=== PATIENT | male | born 1935 | race Caucasian/White ===

== ENCOUNTER 2017-09-22 12:41 | Inpatient (IN) | payer MEDICARE, MEDICAID, OTHER ==
[~2017-09-22] VITALS: Ht 188 cm; Wt 104.5 kg
[~2017-09-22 12:41] MED LIST: ACET-2119 PO; ALLO300T2 PO; ASPI81TA46 PO; BENZ1LOZ61 PO; CALC200T29 PO; CARV10CP PO; CHOL10002 PO; CLOT12CR TOP; DEXT15DR7 EACHEYE; DIME92CR TP; DIVA500T4 PO; FAMO20TA8 PO; FURO-149 PO; GALA8TAB PO; HYDR-569 PO; LACT30003 PO; LORA0.5T PO; MAGN400O6 PO; MELO-102 PO; MICO5POW6 TOP; MULT-1002 PO; POTA10TA19 PO; SERT100T10 PO; SIMV80TA5 PO; [UNRECOGNIZED DRUG - CODE] TP
[2017-09-22] MEDS ORDERED: normal saline 1000ML IV soln IVB ONE (12:55)
[2017-09-22 13:15] LABS: HEMATOCRIT 44.1 % (42.0-52.0); MEAN CORPUSCULAR HGB CONC 34.1 % (33.0-36.5); MEAN CORPUSCULAR VOLUME 96.9 FL (78-98); MEAN PLATELET VOLUME 8.5 FL (7.4-10.4); PLATELET COUNT 186 X10'3 (140-440); RED BLOOD COUNT 4.56 X10'6 (4.70-6.10); RED CELL DISTRIBUTION WIDTH 14.8 % (11.5-14.5)
[2017-09-22 13:26] LABS: INR 1.2 INR; PARTIAL THROMBOPLASTIN TIME 30 SECONDS (22-32); PROTHROMBIN TIME 12.1 SECONDS (9.0-12.0)
[2017-09-22 13:34] LABS: ALANINE AMINOTRANSFERASE 31 U/L (12-78); ALBUMIN 2.4 G/DL (3.4-5.0); ALBUMIN/GLOBULIN RATIO 0.5 (1.1-1.5); ALKALINE PHOSPHATASE 124 IU/L (46-116); ANION GAP 12 (8-16); ASPARTATE AMINO TRANSFERASE 27 U/L (10-37); BLOOD UREA NITROGEN 33 MG/DL (7-18); CALCIUM 9.2 MG/DL (8.5-10.1); CHLORIDE 105 MMOL/L (99-107); CREATININE 1.03 MG/DL (0.60-1.10); ETHANOL < 0.010 GM/DL (0.0-0.010); GLUCOSE 131 MG/DL (70-104); LACTIC SEPSIS 1.8 MMOL/L (0.4-2.0); MAGNESIUM 2.2 MG/DL (1.5-2.4); POTASSIUM 3.8 MMOL/L (3.5-5.1); SODIUM 142 MMOL/L (135-145); TOTAL CARBON DIOXIDE 25.2 MMOL/L (24-32); TOTAL PROTEIN 6.8 G/DL (6.4-8.2); TROPONIN I < 0.04 NG/ML (0.0-0.05); eGFR 69 ML/MIN
[2017-09-22 13:44] LABS: ANISOCYTOSIS 1+; NUCLEATED RED BLOOD CELLS 1 /100WBC (0-0); PLATELET ESTIMATE NORMAL; TOTAL CELLS COUNTED 100
[2017-09-22 14:07] LABS: CLARITY,URINE CLEAR (Clear); COLOR,URINE AMBER (Yellow); GLUCOSE, URINE NEGATIVE (Neg); KETONES,URINE 15 mg/dl (Neg); LEUKOCYTE ESTERASE ,URINE NEGATIVE (Neg); NITRITES, URINE NEGATIVE (Neg); OCCULT BLOOD,URINE TRACE-INTACT (Neg); PROTEIN,URINE 30 mg/dl (Neg); UA COLLECTION TYPE FOLEY CATH; UROBILINOGEN,URINE 0.2 E.U/dL (0.2-1.0)
[2017-09-22] MEDS ORDERED: metroNIDAZOLE-Flagyl 500mg/NS 100 ML IV STA (14:07)
[2017-09-22] MEDS ORDERED: ciprofloxacin lact 400MG/200ML 200 ML IV ONE (14:10)
[2017-09-22 14:13] LABS: URINE AMPHETAMINE SCREEN NEGATIVE (Neg); URINE BARBITUATE SCREEN NEGATIVE (Neg); URINE BENZODIAZEPINES SCREEN NEGATIVE (Neg); URINE CANNABINOID SCREEN NEGATIVE (Neg); URINE COCAINE SCREEN NEGATIVE (Neg); URINE METHADONE SCREEN NEGATIVE (Neg); URINE OPIATE SCREEN NEGATIVE (Neg); URINE PHENCYCLIDINE SCREEN NEGATIVE (Neg)
[2017-09-22 14:16] LABS: BACTERIA,URINE FEW /HPF (Neg); MUCUS STRANDS MANY /LPF (Neg); SQUAMOUS EPITHELIAL CELL,UR NONE SEEN /LPF (FEW); TRANSITIONAL EPI CELLS,URINE FEW /HPF
[2017-09-22 14:17] LABS: COARSE GRANULAR CAST 0-3 /LPF (NEGATIVE); HYALINE CASTS 0-3 /LPF (NEGATIVE)
[2017-09-22] MEDS ORDERED: potassium Cl 40MEQ/NS 500ml 500 ML IV PRN ×2 (14:45)
[2017-09-22] MEDS ORDERED: magnesium 2GM in 50ml NS 50 ML IV PRN (14:45)
[2017-09-22] MEDS ORDERED: mag hydrox/Alum hydrox/simeth 30ml oral suspension PO PRN (14:45)
[2017-09-22] MEDS ORDERED: potassium Cl 20 mEq SR tablet PO PRN (14:45)
[2017-09-22] MEDS ORDERED: acetaminophen 325mg tablet PO PRN (14:45)
[2017-09-22] MEDS ORDERED: magnesium 4gm in 100ml NS 100 ML IV PRN (14:45)
[2017-09-22] MEDS ORDERED: magnesium hydroxide 30ml (MOM) UD suspension PO PRN (14:45)
[2017-09-22] MEDS ORDERED: ondansetron/PF 4mg/2ml inj IV PRN (14:45)
[2017-09-22] MEDS ORDERED: magnesium Cl slow-release 64mg tablet PO PRN (14:45)
[2017-09-22] MEDS ORDERED: DONE10TA6 PO (15:03)
[2017-09-22] MEDS ORDERED: LOPE2CAP PO (15:03)
[2017-09-22] MEDS ORDERED: BISA5TAB10 PO (15:03)
[2017-09-22] MEDS: normal saline 1000ml 1,000 ML IV SCH (15:57)
[2017-09-22] MEDS ORDERED: metroNIDAZOLE-Flagyl 500mg/NS 100 ML IV SCH (16:00)
[2017-09-22] MEDS ORDERED: iohexol 300mg/ml 100ml inj. ONE (17:27)
[2017-09-22] MEDS: carVEDilol 3.125mg tablet PO SCH (19:55)
[2017-09-22] MEDS: donepezil 5mg tablet PO SCH (20:58)
[2017-09-22 21:35] VITALS: BP 111/63
[2017-09-22] MEDS: metroNIDAZOLE-Flagyl 500mg/NS 100 ML IV SCH (23:34)
[2017-09-23] MEDS: normal saline 1000ml 1,000 ML IV SCH ×2 (03:29→10:41)
[2017-09-23 05:35] LABS: ALANINE AMINOTRANSFERASE 23 U/L (12-78); ALBUMIN 1.9 G/DL (3.4-5.0); ALBUMIN/GLOBULIN RATIO 0.5 (1.1-1.5); ALKALINE PHOSPHATASE 99 IU/L (46-116); ANION GAP 10 (8-16); ASPARTATE AMINO TRANSFERASE 25 U/L (10-37); BILIRUBIN,TOTAL 0.7 MG/DL (0.1-1.0); BLOOD UREA NITROGEN 26 MG/DL (7-18); BUN/CREATININE RATIO 32.1 (5.4-32.0); CALCIUM 8.6 MG/DL (8.5-10.1); CHLORIDE 109 MMOL/L (99-107); CREATININE 0.81 MG/DL (0.60-1.10); GLUCOSE 117 MG/DL (70-104); MAGNESIUM 2.1 MG/DL (1.5-2.4); POTASSIUM 4.1 MMOL/L (3.5-5.1); SODIUM 144 MMOL/L (135-145); TOTAL CARBON DIOXIDE 25.5 MMOL/L (24-32); TOTAL PROTEIN 5.8 G/DL (6.4-8.2); eGFR > 90 ML/MIN
[2017-09-23] MEDS: metroNIDAZOLE-Flagyl 500mg/NS 100 ML IV SCH ×2 (06:13→14:00)
[2017-09-23 06:54] LABS: HEMATOCRIT 39.7 % (42.0-52.0); HEMOGLOBIN 13.4 g/dl (14.0-17.9); MEAN CORPUSCULAR HGB CONC 33.7 % (33.0-36.5); MEAN CORPUSCULAR VOLUME 97.9 FL (78-98); MEAN PLATELET VOLUME 8.9 FL (7.4-10.4); PLATELET COUNT 163 X10'3 (140-440); RED BLOOD COUNT 4.06 X10'6 (4.70-6.10); RED CELL DISTRIBUTION WIDTH 14.8 % (11.5-14.5); WHITE BLOOD COUNT 9.8 X10'3 (4.5-11.0)
[2017-09-23 07:00] VITALS: BP 113/61
[2017-09-23 07:08] LABS: ANISOCYTOSIS 1+; PLATELET ESTIMATE NORMAL; TOTAL CELLS COUNTED 100
[2017-09-23 07:09] LABS: POLYCHROMASIA FEW
[2017-09-23] MEDS: K and/or MAG REPLACEMENT MC SCH (08:00)
[2017-09-23] MEDS: divalproex sod 250mg ER (24-hour) tablet PO SCH ×3 (08:00→12:25)
[2017-09-23] MEDS: carVEDilol 3.125mg tablet PO SCH ×2 (09:18→20:01)
[2017-09-23] MEDS: levoFLOXACIN-Levaquin 500mg/D5 100 ML IV SCH (09:18)
[2017-09-23] MEDS: acetaminophen 325mg tablet PO PRN (09:19)
[2017-09-23] MEDS: enoxaparin 40mg/0.4ml syringe SQ SCH (09:21)
[2017-09-23 11:10] VITALS: BP 99/50
[2017-09-23 19:00] VITALS: BP 116/69
[2017-09-24] VITALS: BP 113/56
[2017-09-24] MEDS: donepezil 5mg tablet PO SCH ×2 (00:10→20:48)
[2017-09-24] MEDS: normal saline 1000ml 1,000 ML IV SCH ×3 (00:10→16:41)
[2017-09-24] MEDS: metroNIDAZOLE-Flagyl 500mg/NS 100 ML IV SCH ×3 (02:10→18:45)
[2017-09-24] MEDS ORDERED: VANCOMYCIN LEVEL IV ONE (03:30)
[2017-09-24 04:31] LABS: BASOPHILS % (AUTO) 0.2 % (0-1); EOSINOPHILS # (AUTO) 0.5 X10'3 (0-0.9); EOSINOPHILS % (AUTO) 4.9 % (0-6); HEMATOCRIT 34.8 % (42.0-52.0); HEMOGLOBIN 11.6 g/dl (14.0-17.9); LYMPHOCYTES # (AUTO) 1.1 X10'3 (1.1-4.8); LYMPHOCYTES % (AUTO) 11.2 % (21-51); MEAN CORPUSCULAR HEMOGLOBIN 32.4 PG (27.0-31.0); MEAN CORPUSCULAR HGB CONC 33.3 % (33.0-36.5); MEAN CORPUSCULAR VOLUME 97.1 FL (78-98); MEAN PLATELET VOLUME 8.9 FL (7.4-10.4); MONOCYTES # (AUTO) 1.8 X10'3 (0-0.9); MONOCYTES % (AUTO) 18.3 % (2-12); NEUTROPHILS # (AUTO) 6.6 X10'3 (1.8-7.7); NEUTROPHILS % (AUTO) 65.4 % (42-75); PLATELET COUNT 159 X10'3 (140-440); RED BLOOD COUNT 3.58 X10'6 (4.70-6.10); RED CELL DISTRIBUTION WIDTH 14.1 % (11.5-14.5)
[2017-09-24 04:33] LABS: ALANINE AMINOTRANSFERASE 20 U/L (12-78); ALBUMIN 1.6 G/DL (3.4-5.0); ALBUMIN/GLOBULIN RATIO 0.5 (1.1-1.5); ALKALINE PHOSPHATASE 92 IU/L (46-116); ANION GAP 8 (8-16); ASPARTATE AMINO TRANSFERASE 28 U/L (10-37); BILIRUBIN,TOTAL 0.4 MG/DL (0.1-1.0); BLOOD UREA NITROGEN 25 MG/DL (7-18); BUN/CREATININE RATIO 30.1 (5.4-32.0); CALCIUM 8.1 MG/DL (8.5-10.1); CHLORIDE 111 MMOL/L (99-107); CREATININE 0.83 MG/DL (0.60-1.10); GLUCOSE 144 MG/DL (70-104); MAGNESIUM 1.8 MG/DL (1.5-2.4); PHOSPHORUS 2.2 MG/DL (2.3-4.5); POTASSIUM 3.3 MMOL/L (3.5-5.1); SODIUM 145 MMOL/L (135-145); TOTAL CARBON DIOXIDE 26.1 MMOL/L (24-32); TOTAL PROTEIN 4.9 G/DL (6.4-8.2); VANCOMYCIN,TROUGH 14.3 UG/ML (6.0-14.0); eGFR 89 ML/MIN
[2017-09-24 07:00] VITALS: BP 137/64
[2017-09-24] MEDS: K and/or MAG REPLACEMENT MC SCH (08:00)
[2017-09-24 09:04] LABS: C DIFF ANTIGEN NEGATIVE (NEGATIVE); C DIFF SPECIMEN=DIARRHEA? ACCEPTABLE; C DIFFICILE TOXINS A&B NEGATIVE (Neg)
[2017-09-24] MEDS: enoxaparin 40mg/0.4ml syringe SQ SCH (09:11)
[2017-09-24] MEDS: carVEDilol 3.125mg tablet PO SCH ×2 (09:11→20:47)
[2017-09-24] MEDS: divalproex sod 250mg ER (24-hour) tablet PO SCH (09:12)
[2017-09-24] MEDS: levoFLOXACIN-Levaquin 500mg/D5 100 ML IV SCH (09:12)
[2017-09-24 10:20] LABS: TOTAL CELLS COUNTED 100
[2017-09-24 10:21] LABS: PLATELET ESTIMATE NORMAL
[2017-09-24 10:22] LABS: SMUDGE CELLS FEW; TOXIC GRANULATION 1+
[2017-09-24 11:00] VITALS: BP 129/70
[2017-09-24] MEDS: potassium Cl 20 mEq SR tablet PO PRN ×2 (12:06→16:11)
[2017-09-24 20:00] VITALS: BP 114/63
[2017-09-24] MEDS: lactobacillus rhamnosus 10,000 MMU CELLS/CAPSULE PO SCH (20:48)
[2017-09-25] VITALS: BP 125/72
[2017-09-25] MEDS: normal saline 1000ml 1,000 ML IV SCH ×3 (00:41→22:41)
[2017-09-25] MEDS: metroNIDAZOLE-Flagyl 500mg/NS 100 ML IV SCH ×3 (02:04→17:45)
[2017-09-25 06:00] VITALS: BP 123/66
[2017-09-25 06:07] LABS: BASOPHILS % (AUTO) 0.1 % (0-1); EOSINOPHILS # (AUTO) 0.5 X10'3 (0-0.9); HEMATOCRIT 35.1 % (42.0-52.0); HEMOGLOBIN 11.7 g/dl (14.0-17.9); LYMPHOCYTES # (AUTO) 1.3 X10'3 (1.1-4.8); MEAN CORPUSCULAR HEMOGLOBIN 32.6 PG (27.0-31.0); MEAN CORPUSCULAR HGB CONC 33.4 % (33.0-36.5); MEAN CORPUSCULAR VOLUME 97.6 FL (78-98); MEAN PLATELET VOLUME 8.7 FL (7.4-10.4); MONOCYTES # (AUTO) 1.3 X10'3 (0-0.9); MONOCYTES % (AUTO) 11.1 % (2-12); NEUTROPHILS # (AUTO) 8.6 X10'3 (1.8-7.7); NEUTROPHILS % (AUTO) 73.8 % (42-75); PLATELET COUNT 172 X10'3 (140-440); RED CELL DISTRIBUTION WIDTH 14.4 % (11.5-14.5); WHITE BLOOD COUNT 11.6 X10'3 (4.5-11.0)
[2017-09-25 06:46] LABS: ALANINE AMINOTRANSFERASE 21 U/L (12-78); ALBUMIN 1.7 G/DL (3.4-5.0); ALBUMIN/GLOBULIN RATIO 0.5 (1.1-1.5); ALKALINE PHOSPHATASE 97 IU/L (46-116); ANION GAP 8 (8-16); ASPARTATE AMINO TRANSFERASE 25 U/L (10-37); BILIRUBIN,TOTAL 0.5 MG/DL (0.1-1.0); BLOOD UREA NITROGEN 19 MG/DL (7-18); BUN/CREATININE RATIO 26.4 (5.4-32.0); CALCIUM 8.1 MG/DL (8.5-10.1); CHLORIDE 110 MMOL/L (99-107); CREATININE 0.72 MG/DL (0.60-1.10); GLUCOSE 105 MG/DL (70-104); MAGNESIUM 1.8 MG/DL (1.5-2.4); PHOSPHORUS 2.6 MG/DL (2.3-4.5); POTASSIUM 3.3 MMOL/L (3.5-5.1); SODIUM 144 MMOL/L (135-145); TOTAL CARBON DIOXIDE 25.7 MMOL/L (24-32); eGFR > 90 ML/MIN
[2017-09-25] MEDS: K and/or MAG REPLACEMENT MC SCH (08:00)
[2017-09-25] MEDS: lactobacillus rhamnosus 10,000 MMU CELLS/CAPSULE PO SCH ×2 (08:50→20:06)
[2017-09-25] MEDS: carVEDilol 3.125mg tablet PO SCH ×2 (08:50→20:05)
[2017-09-25] MEDS: enoxaparin 40mg/0.4ml syringe SQ SCH (08:50)
[2017-09-25] MEDS: levoFLOXACIN-Levaquin 500mg/D5 100 ML IV SCH (08:51)
[2017-09-25] MEDS: potassium Cl 20 mEq SR tablet PO PRN ×2 (08:54→12:50)
[2017-09-25 10:14] LABS: TOTAL CELLS COUNTED 100
[2017-09-25 10:15] LABS: PLATELET ESTIMATE NORMAL
[2017-09-25 10:16] LABS: SMUDGE CELLS FEW
[2017-09-25 11:00] VITALS: BP 123/66
[2017-09-25] MEDS: divalproex sod 250mg ER (24-hour) tablet PO SCH (12:49)
[2017-09-25 18:00] VITALS: BP 134/89
[2017-09-25] MEDS: acetaminophen 325mg tablet PO PRN (20:05)
[2017-09-25] MEDS: donepezil 5mg tablet PO SCH (20:06)
[2017-09-25] MEDS ORDERED: magnesium Cl slow-release 64mg tablet PO PRN (20:50)
[2017-09-25] MEDS ORDERED: potassium Cl 40MEQ/NS 500ml 500 ML IV PRN ×2 (20:50)
[2017-09-25] MEDS ORDERED: potassium Cl 20 mEq SR tablet PO PRN ×2 (20:50)
[2017-09-26] VITALS: BP 144/72
[2017-09-26] MEDS: metroNIDAZOLE-Flagyl 500mg/NS 100 ML IV SCH ×3 (02:06→18:08)
[2017-09-26] MEDS: normal saline 1000ml 1,000 ML IV SCH ×2 (02:53→19:24)
[2017-09-26 06:08] LABS: BASOPHILS % (AUTO) 0.2 % (0-1); EOSINOPHILS # (AUTO) 0.4 X10'3 (0-0.9); EOSINOPHILS % (AUTO) 3.3 % (0-6); HEMATOCRIT 33.6 % (42.0-52.0); HEMOGLOBIN 11.4 g/dl (14.0-17.9); LYMPHOCYTES # (AUTO) 1.3 X10'3 (1.1-4.8); LYMPHOCYTES % (AUTO) 9.7 % (21-51); MEAN CORPUSCULAR HGB CONC 33.9 % (33.0-36.5); MEAN CORPUSCULAR VOLUME 97.1 FL (78-98); MEAN PLATELET VOLUME 9.1 FL (7.4-10.4); MONOCYTES # (AUTO) 1.2 X10'3 (0-0.9); MONOCYTES % (AUTO) 9.1 % (2-12); NEUTROPHILS # (AUTO) 10.5 X10'3 (1.8-7.7); NEUTROPHILS % (AUTO) 77.7 % (42-75); PLATELET COUNT 174 X10'3 (140-440); RED BLOOD COUNT 3.46 X10'6 (4.70-6.10); RED CELL DISTRIBUTION WIDTH 14.1 % (11.5-14.5); WHITE BLOOD COUNT 13.4 X10'3 (4.5-11.0)
[2017-09-26 06:15] LABS: ALANINE AMINOTRANSFERASE 29 U/L (12-78); ALBUMIN 1.7 G/DL (3.4-5.0); ALBUMIN/GLOBULIN RATIO 0.6 (1.1-1.5); ALKALINE PHOSPHATASE 107 IU/L (46-116); ANION GAP 9 (8-16); ASPARTATE AMINO TRANSFERASE 40 U/L (10-37); BILIRUBIN,TOTAL 0.5 MG/DL (0.1-1.0); BLOOD UREA NITROGEN 13 MG/DL (7-18); BUN/CREATININE RATIO 17.3 (5.4-32.0); CHLORIDE 109 MMOL/L (99-107); CREATININE 0.75 MG/DL (0.60-1.10); GLUCOSE 107 MG/DL (70-104); MAGNESIUM 1.7 MG/DL (1.5-2.4); POTASSIUM 3.7 MMOL/L (3.5-5.1); SODIUM 142 MMOL/L (135-145); TOTAL CARBON DIOXIDE 23.9 MMOL/L (24-32); TOTAL PROTEIN 4.7 G/DL (6.4-8.2); eGFR > 90 ML/MIN
[2017-09-26 07:00] VITALS: BP 124/77
[2017-09-26] MEDS: K and/or MAG REPLACEMENT MC SCH (08:00)
[2017-09-26] MEDS: levoFLOXACIN-Levaquin 500mg/D5 100 ML IV SCH (08:55)
[2017-09-26] MEDS: lactobacillus rhamnosus 10,000 MMU CELLS/CAPSULE PO SCH ×2 (08:56→19:36)
[2017-09-26] MEDS: divalproex sod 250mg ER (24-hour) tablet PO SCH (08:56)
[2017-09-26] MEDS: acetaminophen 325mg tablet PO PRN (08:56)
[2017-09-26] MEDS: carVEDilol 3.125mg tablet PO SCH ×2 (08:56→19:36)
[2017-09-26] MEDS: enoxaparin 40mg/0.4ml syringe SQ SCH (08:57)
[2017-09-26 09:36] LABS: TOTAL CELLS COUNTED 100
[2017-09-26 09:37] LABS: PLATELET ESTIMATE NORMAL; POLYCHROMASIA 1+
[2017-09-26 09:38] LABS: TOXIC GRANULATION 1+
[2017-09-26 11:00] VITALS: BP 145/65
[2017-09-26] MEDS: LORazepam 0.5 MG tablet PO SCH ×2 (12:41→19:36)
[2017-09-26] MEDS: donepezil 5mg tablet PO SCH (19:36)
[2017-09-26] MEDS: mirtazapine 15mg tablet PO SCH (19:37)
[2017-09-26 20:00] VITALS: BP 106/65
[2017-09-27] VITALS: BP 121/64
[2017-09-27] MEDS: metroNIDAZOLE-Flagyl 500mg/NS 100 ML IV SCH ×3 (01:59→17:27)
[2017-09-27] MEDS: normal saline 1000ml 1,000 ML IV SCH ×2 (04:26→17:27)
[2017-09-27 05:27] LABS: BASOPHILS % (AUTO) 0 % (0-1); EOSINOPHILS # (AUTO) 0.5 X10'3 (0-0.9); HEMATOCRIT 36.8 % (42.0-52.0); HEMOGLOBIN 12.5 g/dl (14.0-17.9); LYMPHOCYTES # (AUTO) 1.4 X10'3 (1.1-4.8); LYMPHOCYTES % (AUTO) 9.2 % (21-51); MEAN CORPUSCULAR HEMOGLOBIN 33.1 PG (27.0-31.0); MEAN CORPUSCULAR HGB CONC 33.9 % (33.0-36.5); MEAN CORPUSCULAR VOLUME 97.5 FL (78-98); MEAN PLATELET VOLUME 8.2 FL (7.4-10.4); MONOCYTES # (AUTO) 1.5 X10'3 (0-0.9); MONOCYTES % (AUTO) 9.4 % (2-12); NEUTROPHILS # (AUTO) 12.3 X10'3 (1.8-7.7); NEUTROPHILS % (AUTO) 78.4 % (42-75); PLATELET COUNT 204 X10'3 (140-440); RED BLOOD COUNT 3.77 X10'6 (4.70-6.10); RED CELL DISTRIBUTION WIDTH 14.8 % (11.5-14.5); WHITE BLOOD COUNT 15.7 X10'3 (4.5-11.0)
[2017-09-27 06:17] LABS: ALANINE AMINOTRANSFERASE 28 U/L (12-78); ALBUMIN/GLOBULIN RATIO 0.6 (1.1-1.5); ALKALINE PHOSPHATASE 130 IU/L (46-116); ANION GAP 9 (8-16); ASPARTATE AMINO TRANSFERASE 48 U/L (10-37); BILIRUBIN,TOTAL 0.7 MG/DL (0.1-1.0); BLOOD UREA NITROGEN 9 MG/DL (7-18); BUN/CREATININE RATIO 12.3 (5.4-32.0); CALCIUM 7.8 MG/DL (8.5-10.1); CHLORIDE 107 MMOL/L (99-107); CREATININE 0.73 MG/DL (0.60-1.10); GLUCOSE 101 MG/DL (70-104); MAGNESIUM 1.7 MG/DL (1.5-2.4); PHOSPHORUS 3.4 MG/DL (2.3-4.5); POTASSIUM 3.6 MMOL/L (3.5-5.1); SODIUM 141 MMOL/L (135-145); TOTAL CARBON DIOXIDE 25.3 MMOL/L (24-32); TOTAL PROTEIN 5.3 G/DL (6.4-8.2); eGFR > 90 ML/MIN
[2017-09-27] MEDS: LORazepam 0.5 MG tablet PO SCH (08:00)
[2017-09-27] MEDS: K and/or MAG REPLACEMENT MC SCH (08:00)
[2017-09-27] MEDS: levoFLOXACIN-Levaquin 500mg/D5 100 ML IV SCH (08:04)
[2017-09-27] MEDS: enoxaparin 40mg/0.4ml syringe SQ SCH (08:04)
[2017-09-27] MEDS: carVEDilol 3.125mg tablet PO SCH ×2 (08:05→20:05)
[2017-09-27] MEDS: lactobacillus rhamnosus 10,000 MMU CELLS/CAPSULE PO SCH ×2 (08:05→20:05)
[2017-09-27] MEDS: divalproex sod 250mg ER (24-hour) tablet PO SCH (08:05)
[2017-09-27 10:23] LABS: PLATELET ESTIMATE NORMAL; TOTAL CELLS COUNTED 100
[2017-09-27 10:24] LABS: POLYCHROMASIA FEW; TOXIC GRANULATION 2+
[2017-09-27 11:00] VITALS: BP 113/65
[2017-09-27 20:00] VITALS: BP 107/59
[2017-09-27] MEDS: mirtazapine 15mg tablet PO SCH (20:05)
[2017-09-27] MEDS: donepezil 5mg tablet PO SCH (20:05)
[2017-09-28] VITALS: BP 113/62
[2017-09-28] MEDS: normal saline 1000ml 1,000 ML IV SCH ×3 (01:39→20:12)
[2017-09-28] MEDS: metroNIDAZOLE-Flagyl 500mg/NS 100 ML IV SCH ×3 (01:43→17:35)
[2017-09-28 07:00] VITALS: BP 107/58
[2017-09-28] MEDS: K and/or MAG REPLACEMENT MC SCH (08:00)
[2017-09-28] MEDS: levoFLOXACIN-Levaquin 500mg/D5 100 ML IV SCH (08:04)
[2017-09-28] MEDS: enoxaparin 40mg/0.4ml syringe SQ SCH (08:05)
[2017-09-28] MEDS: lactobacillus rhamnosus 10,000 MMU CELLS/CAPSULE PO SCH ×2 (08:05→20:09)
[2017-09-28] MEDS: carVEDilol 3.125mg tablet PO SCH ×2 (08:05→20:07)
[2017-09-28] MEDS: acetaminophen 325mg tablet PO PRN (11:07)
[2017-09-28 11:29] LABS: BASOPHILS % (AUTO) 0.1 % (0-1); EOSINOPHILS # (AUTO) 0.5 X10'3 (0-0.9); EOSINOPHILS % (AUTO) 3.2 % (0-6); HEMATOCRIT 32.3 % (42.0-52.0); HEMOGLOBIN 11.1 g/dl (14.0-17.9); LYMPHOCYTES # (AUTO) 1.5 X10'3 (1.1-4.8); LYMPHOCYTES % (AUTO) 10.4 % (21-51); MEAN CORPUSCULAR HEMOGLOBIN 32.8 PG (27.0-31.0); MEAN CORPUSCULAR HGB CONC 34.3 % (33.0-36.5); MEAN CORPUSCULAR VOLUME 95.7 FL (78-98); MEAN PLATELET VOLUME 7.6 FL (7.4-10.4); MONOCYTES # (AUTO) 1.1 X10'3 (0-0.9); MONOCYTES % (AUTO) 7.9 % (2-12); NEUTROPHILS # (AUTO) 11.1 X10'3 (1.8-7.7); NEUTROPHILS % (AUTO) 78.4 % (42-75); PLATELET COUNT 203 X10'3 (140-440); RED BLOOD COUNT 3.38 X10'6 (4.70-6.10); RED CELL DISTRIBUTION WIDTH 15.4 % (11.5-14.5); WHITE BLOOD COUNT 14.2 X10'3 (4.5-11.0)
[2017-09-28 11:43] LABS: ANISOCYTOSIS 1+; LARGE PLATELETS FEW; PLATELET ESTIMATE NORMAL; POLYCHROMASIA FEW; TOTAL CELLS COUNTED 100
[2017-09-28 11:44] LABS: ALANINE AMINOTRANSFERASE 23 U/L (12-78); ALBUMIN 1.7 G/DL (3.4-5.0); ALBUMIN/GLOBULIN RATIO 0.5 (1.1-1.5); ALKALINE PHOSPHATASE 109 IU/L (46-116); ANION GAP 9 (8-16); ASPARTATE AMINO TRANSFERASE 32 U/L (10-37); BILIRUBIN,TOTAL 0.5 MG/DL (0.1-1.0); BLOOD UREA NITROGEN 13 MG/DL (7-18); BUN/CREATININE RATIO 16.3 (5.4-32.0); CALCIUM 7.8 MG/DL (8.5-10.1); CHLORIDE 109 MMOL/L (99-107); GLUCOSE 119 MG/DL (70-104); POTASSIUM 3.9 MMOL/L (3.5-5.1); SODIUM 141 MMOL/L (135-145); TOTAL CARBON DIOXIDE 23.4 MMOL/L (24-32); TOTAL PROTEIN 4.8 G/DL (6.4-8.2); eGFR > 90 ML/MIN
[2017-09-28 11:47] VITALS: BP 87/40
[2017-09-28 18:00] VITALS: BP 105/52
[2017-09-28] MEDS: donepezil 5mg tablet PO SCH (20:09)
[2017-09-28] MEDS ORDERED: LORazepam 2 mg/ml vial IV PRN (22:20)
[2017-09-29] VITALS: BP 123/79
[2017-09-29] MEDS: metroNIDAZOLE-Flagyl 500mg/NS 100 ML IV SCH ×3 (02:00→18:50)
[2017-09-29] MEDS: normal saline 1000ml 1,000 ML IV SCH (06:41)
[2017-09-29 07:00] VITALS: BP 118/73
[2017-09-29] MEDS: K and/or MAG REPLACEMENT MC SCH (08:00)
[2017-09-29] MEDS: lactobacillus rhamnosus 10,000 MMU CELLS/CAPSULE PO SCH ×2 (09:26→21:40)
[2017-09-29] MEDS: levoFLOXACIN-Levaquin 500mg/D5 100 ML IV SCH (09:26)
[2017-09-29] MEDS: enoxaparin 40mg/0.4ml syringe SQ SCH (09:26)
[2017-09-29] MEDS: divalproex sod 250mg ER (24-hour) tablet PO SCH (09:27)
[2017-09-29] MEDS: carVEDilol 3.125mg tablet PO SCH ×2 (09:27→21:41)
[2017-09-29 10:52] LABS: BASOPHILS % (AUTO) 0.2 % (0-1); EOSINOPHILS # (AUTO) 0.5 X10'3 (0-0.9); EOSINOPHILS % (AUTO) 3.8 % (0-6); HEMATOCRIT 33.4 % (42.0-52.0); HEMOGLOBIN 11.4 g/dl (14.0-17.9); LYMPHOCYTES # (AUTO) 1.6 X10'3 (1.1-4.8); LYMPHOCYTES % (AUTO) 11.7 % (21-51); MEAN CORPUSCULAR HEMOGLOBIN 32.7 PG (27.0-31.0); MEAN CORPUSCULAR HGB CONC 34.1 % (33.0-36.5); MEAN CORPUSCULAR VOLUME 96.1 FL (78-98); MONOCYTES % (AUTO) 7.2 % (2-12); NEUTROPHILS # (AUTO) 10.6 X10'3 (1.8-7.7); NEUTROPHILS % (AUTO) 77.1 % (42-75); PLATELET COUNT 207 X10'3 (140-440); RED BLOOD COUNT 3.48 X10'6 (4.70-6.10); RED CELL DISTRIBUTION WIDTH 15.4 % (11.5-14.5); WHITE BLOOD COUNT 13.7 X10'3 (4.5-11.0)
[2017-09-29 11:00] VITALS: BP 157/88
[2017-09-29 11:06] LABS: ALANINE AMINOTRANSFERASE 24 U/L (12-78); ALBUMIN 1.9 G/DL (3.4-5.0); ALBUMIN/GLOBULIN RATIO 0.6 (1.1-1.5); ALKALINE PHOSPHATASE 111 IU/L (46-116); ANION GAP 7 (8-16); ASPARTATE AMINO TRANSFERASE 34 U/L (10-37); BILIRUBIN,TOTAL 0.7 MG/DL (0.1-1.0); BLOOD UREA NITROGEN 12 MG/DL (7-18); BUN/CREATININE RATIO 15.8 (5.4-32.0); CHLORIDE 106 MMOL/L (99-107); CREATININE 0.76 MG/DL (0.60-1.10); GLUCOSE 104 MG/DL (70-104); POTASSIUM 3.8 MMOL/L (3.5-5.1); SODIUM 139 MMOL/L (135-145); TOTAL CARBON DIOXIDE 26.1 MMOL/L (24-32); TOTAL PROTEIN 5.2 G/DL (6.4-8.2); eGFR > 90 ML/MIN
[2017-09-29 11:10] LABS: TOTAL CELLS COUNTED 100
[2017-09-29 11:11] LABS: ANISOCYTOSIS 1+; PLATELET ESTIMATE NORMAL; POLYCHROMASIA 1+; TOXIC VACUOLATION FEW
[2017-09-29] MEDS: acetaminophen 325mg tablet PO PRN ×2 (13:25→21:41)
[2017-09-29 18:00] VITALS: BP 111/65
[2017-09-30] VITALS: BP 115/70
[2017-09-30] MEDS: metroNIDAZOLE-Flagyl 500mg/NS 100 ML IV SCH ×3 (02:13→17:30)
[2017-09-30] MEDS: normal saline 1000ml 1,000 ML IV SCH ×2 (02:13→12:58)
[2017-09-30 07:00] VITALS: BP 118/71
[2017-09-30] MEDS: lactobacillus rhamnosus 10,000 MMU CELLS/CAPSULE PO SCH ×2 (07:57→19:46)
[2017-09-30] MEDS: enoxaparin 40mg/0.4ml syringe SQ SCH (07:57)
[2017-09-30] MEDS: carVEDilol 3.125mg tablet PO SCH ×2 (07:58→19:46)
[2017-09-30] MEDS: divalproex sod 250mg ER (24-hour) tablet PO SCH (07:59)
[2017-09-30] MEDS: K and/or MAG REPLACEMENT MC SCH (08:00)
[2017-09-30 11:16] LABS: BASOPHILS % (AUTO) 0.2 % (0-1); EOSINOPHILS # (AUTO) 0.4 X10'3 (0-0.9); EOSINOPHILS % (AUTO) 3.9 % (0-6); HEMATOCRIT 34.7 % (42.0-52.0); HEMOGLOBIN 11.7 g/dl (14.0-17.9); LYMPHOCYTES # (AUTO) 1.3 X10'3 (1.1-4.8); LYMPHOCYTES % (AUTO) 11.5 % (21-51); MEAN CORPUSCULAR HEMOGLOBIN 32.5 PG (27.0-31.0); MEAN CORPUSCULAR HGB CONC 33.6 % (33.0-36.5); MEAN CORPUSCULAR VOLUME 96.9 FL (78-98); MEAN PLATELET VOLUME 7.5 FL (7.4-10.4); MONOCYTES # (AUTO) 1.1 X10'3 (0-0.9); MONOCYTES % (AUTO) 9.5 % (2-12); NEUTROPHILS # (AUTO) 8.5 X10'3 (1.8-7.7); NEUTROPHILS % (AUTO) 74.9 % (42-75); PLATELET COUNT 228 X10'3 (140-440); RED BLOOD COUNT 3.59 X10'6 (4.70-6.10); RED CELL DISTRIBUTION WIDTH 15.2 % (11.5-14.5); WHITE BLOOD COUNT 11.4 X10'3 (4.5-11.0)
[2017-09-30 11:26] VITALS: BP 123/80
[2017-09-30 11:39] LABS: ANION GAP 8 (8-16); BILIRUBIN,TOTAL 0.6 MG/DL (0.1-1.0); BLOOD UREA NITROGEN 8 MG/DL (7-18); CALCIUM 7.9 MG/DL (8.5-10.1); CHLORIDE 106 MMOL/L (99-107); GLUCOSE 103 MG/DL (70-104); POTASSIUM 3.7 MMOL/L (3.5-5.1); SODIUM 140 MMOL/L (135-145); TOTAL CARBON DIOXIDE 26.2 MMOL/L (24-32); eGFR > 90 ML/MIN
[2017-09-30 11:40] LABS: ALANINE AMINOTRANSFERASE 21 U/L (12-78); ALBUMIN 1.9 G/DL (3.4-5.0); ALBUMIN/GLOBULIN RATIO 0.5 (1.1-1.5); ALKALINE PHOSPHATASE 109 IU/L (46-116); ASPARTATE AMINO TRANSFERASE 33 U/L (10-37); TOTAL PROTEIN 5.5 G/DL (6.4-8.2)
[2017-09-30 19:15] VITALS: BP 109/55
[2017-09-30 23:50] VITALS: BP 121/59
[2017-10-01] MEDS ORDERED: MESSAGE TO PHARMACY PO ONE (00:20)
[2017-10-01] MEDS ORDERED: insulin Lispro (HumaLOG) vial - multi-dose SQ SCH (00:20)
[2017-10-01] MEDS ORDERED: dextrose ORAL solution 15 GM/59 ML bottle PO PRN ×2 (00:20)
[2017-10-01] MEDS ORDERED: glucagon, human recombinant 1mg kit SUBCUT PRN (00:20)
[2017-10-01] MEDS ORDERED: dextrose 50%-water 50ml dispensing syringe IV PRN ×2 (00:20)
[2017-10-01] MEDS: normal saline 1000ml 1,000 ML IV SCH (01:49)
[2017-10-01] MEDS: metroNIDAZOLE-Flagyl 500mg/NS 100 ML IV SCH ×2 (01:49→09:50)
[2017-10-01 05:09] LABS: BASOPHILS % (AUTO) 0.4 % (0-1); EOSINOPHILS # (AUTO) 0.5 X10'3 (0-0.9); EOSINOPHILS % (AUTO) 4.6 % (0-6); HEMOGLOBIN 11.8 g/dl (14.0-17.9); LYMPHOCYTES # (AUTO) 1.1 X10'3 (1.1-4.8); MEAN CORPUSCULAR HEMOGLOBIN 32.9 PG (27.0-31.0); MEAN CORPUSCULAR HGB CONC 33.9 % (33.0-36.5); MEAN CORPUSCULAR VOLUME 97.1 FL (78-98); MEAN PLATELET VOLUME 7.8 FL (7.4-10.4); MONOCYTES # (AUTO) 1.1 X10'3 (0-0.9); MONOCYTES % (AUTO) 9.8 % (2-12); NEUTROPHILS # (AUTO) 8.1 X10'3 (1.8-7.7); NEUTROPHILS % (AUTO) 75.2 % (42-75); PLATELET COUNT 253 X10'3 (140-440); RED CELL DISTRIBUTION WIDTH 15.6 % (11.5-14.5); WHITE BLOOD COUNT 10.7 X10'3 (4.5-11.0)
[2017-10-01 05:33] LABS: ALANINE AMINOTRANSFERASE 18 U/L (12-78); ALBUMIN/GLOBULIN RATIO 0.6 (1.1-1.5); ALKALINE PHOSPHATASE 111 IU/L (46-116); ANION GAP 7 (8-16); ASPARTATE AMINO TRANSFERASE 29 U/L (10-37); BILIRUBIN,TOTAL 0.6 MG/DL (0.1-1.0); BLOOD UREA NITROGEN 9 MG/DL (7-18); BUN/CREATININE RATIO 12.3 (5.4-32.0); CALCIUM 8.2 MG/DL (8.5-10.1); CHLORIDE 106 MMOL/L (99-107); CREATININE 0.73 MG/DL (0.60-1.10); GLUCOSE 118 MG/DL (70-104); POTASSIUM 3.9 MMOL/L (3.5-5.1); SODIUM 138 MMOL/L (135-145); TOTAL CARBON DIOXIDE 24.7 MMOL/L (24-32); TOTAL PROTEIN 5.5 G/DL (6.4-8.2); eGFR > 90 ML/MIN
[2017-10-01 07:00] VITALS: BP 121/61
[2017-10-01] MEDS ORDERED: pantoprazole 40 MG vial IV SCH (08:00)
[2017-10-01] MEDS: K and/or MAG REPLACEMENT MC SCH (08:00)
[2017-10-01] MEDS: divalproex sod 250mg ER (24-hour) tablet PO SCH (08:02)
[2017-10-01] MEDS: lactobacillus rhamnosus 10,000 MMU CELLS/CAPSULE PO SCH (08:02)
[2017-10-01] MEDS: carVEDilol 3.125mg tablet PO SCH (08:03)
[2017-10-01] MEDS: enoxaparin 40mg/0.4ml syringe SQ SCH (08:04)
[2017-10-01 11:00] VITALS: BP 127/69
[2017-10-01] MEDS ORDERED: insulin glargine (Lantus) pen - multi-dose SQ SCH (21:00)
== END 2017-10-01 13:25 | disposition home or self-care (01) | DRG 871 ==
LOC: ER 12:42 → ED HOLD 14:41 → EDBEDREQ 21:12 → SUR 3N 21:30
PROVIDERS: ADMIT Family Medicine; ATTEND Family Medicine
PROC: BW251ZZ Computerized Tomography (CT Scan) of Chest, Abdomen and Pelvis using Low Osmolar Contrast (ICD-10-PCS; principal; 2017-09-22)
DX: A41.9 Sepsis, unspecified organism (principal); E43 Unspecified severe protein-calorie malnutrition; G93.40 Encephalopathy, unspecified; E11.9 Type 2 diabetes mellitus without complications; G31.09 Other frontotemporal neurocognitive disorder; I49.5 Sick sinus syndrome; K52.9 Noninfective gastroenteritis and colitis, unspecified; E78.5 Hyperlipidemia, unspecified; F31.9 Bipolar disorder, unspecified; F41.9 Anxiety disorder, unspecified; R45.1 Restlessness and agitation; M10.9 Gout, unspecified; M19.90 Unspecified osteoarthritis, unspecified site; H91.90 Unspecified hearing loss, unspecified ear; I10 Essential (primary) hypertension; I25.10 Atherosclerotic heart disease of native coronary artery without angina pectoris; I87.2 Venous insufficiency (chronic) (peripheral); K21.9 Gastro-esophageal reflux disease without esophagitis; Z66 Do not resuscitate; Z95.0 Presence of cardiac pacemaker; Z79.82 Long term (current) use of aspirin; Z79.899 Other long term (current) drug therapy; Z88.0 Allergy status to penicillin; Z68.29 Body mass index [BMI] 29.0-29.9, adult
CPT/HCPCS: 36415; 70450; 71045; 71260; 72125; 74177; 80053; 80202; 80305; 80320; 81001; 82140; 82948; 83036; 83605; 83735; 84100; 84132; 84145; 84484; 85025; 85610; 85730; 87040; 87070; 87088; 87324; 87449; 93005; 96360; 97110; 97116; 97162; 97530; 97535; 99285; A4333; A6213; A6258; A6402; A6446; C1758; C9113; J0744; J1650; J1815; J1956; J2060; J3370; J3490; J7030; Q9967

== ENCOUNTER 2017-10-12 10:57 | Emergency (ER) | payer MEDICARE, MEDICAID, OTHER ==
[~2017-10-12] VITALS: Ht 177.8 cm; Wt 101.0 kg
[~2017-10-12 10:57] MED LIST changes: -BENZ1LOZ61 PO; +BISA5TAB10 PO; -CALC200T29 PO; -CLOT12CR TOP; -DIME92CR TP; +DONE10TA6 PO; -FURO-149 PO; -GALA8TAB PO; +LOPE2CAP PO; -SERT100T10 PO; -SIMV80TA5 PO; -[UNRECOGNIZED DRUG - CODE] TP
[2017-10-12] MEDS ORDERED: normal saline 1000ML IV soln IVB ONE (11:25)
[2017-10-12 12:24] LABS: BASOPHILS % (AUTO) 0.3 % (0-1); EOSINOPHILS # (AUTO) 0.2 X10'3 (0-0.9); EOSINOPHILS % (AUTO) 2.3 % (0-6); HEMATOCRIT 38.6 % (42.0-52.0); HEMOGLOBIN 12.6 g/dl (14.0-17.9); LYMPHOCYTES % (AUTO) 12.3 % (21-51); MEAN CORPUSCULAR HEMOGLOBIN 32.5 PG (27.0-31.0); MEAN CORPUSCULAR HGB CONC 32.7 % (33.0-36.5); MEAN CORPUSCULAR VOLUME 99.4 FL (78-98); MEAN PLATELET VOLUME 8.2 FL (7.4-10.4); MONOCYTES % (AUTO) 12.2 % (2-12); NEUTROPHILS # (AUTO) 6.1 X10'3 (1.8-7.7); NEUTROPHILS % (AUTO) 72.9 % (42-75); PLATELET COUNT 188 X10'3 (140-440); RED BLOOD COUNT 3.88 X10'6 (4.70-6.10); RED CELL DISTRIBUTION WIDTH 17.1 % (11.5-14.5); WHITE BLOOD COUNT 8.4 X10'3 (4.5-11.0)
[2017-10-12 12:29] LABS: CLARITY,URINE CLEAR (Clear); COLOR,URINE ORANGE (Yellow)
[2017-10-12 12:31] LABS: UA COLLECTION TYPE STRAIGHT CATH
[2017-10-12 12:36] LABS: BACTERIA,URINE NONE SEEN /HPF (Neg); MUCUS STRANDS FEW /LPF (Neg); RBC,URINE NONE SEEN /HPF (0-2); SQUAMOUS EPITHELIAL CELL,UR NONE SEEN /LPF (FEW); TRANSITIONAL EPI CELLS,URINE FEW /HPF; WBC,URINE 0-4 /HPF (0-4)
[2017-10-12 12:43] LABS: ALANINE AMINOTRANSFERASE 22 U/L (12-78); ALBUMIN 2.5 G/DL (3.4-5.0); ALBUMIN/GLOBULIN RATIO 0.7 (1.1-1.5); ALKALINE PHOSPHATASE 103 IU/L (46-116); ANION GAP 9 (8-16); ASPARTATE AMINO TRANSFERASE 31 U/L (10-37); BILIRUBIN,TOTAL 0.9 MG/DL (0.1-1.0); BLOOD UREA NITROGEN 15 MG/DL (7-18); CALCIUM 8.4 MG/DL (8.5-10.1); CHLORIDE 105 MMOL/L (99-107); CREATININE 0.88 MG/DL (0.60-1.10); GLUCOSE 141 MG/DL (70-104); POTASSIUM 3.9 MMOL/L (3.5-5.1); SODIUM 139 MMOL/L (135-145); TOTAL CARBON DIOXIDE 24.9 MMOL/L (24-32); TOTAL PROTEIN 6.2 G/DL (6.4-8.2); eGFR 83 ML/MIN
[2017-10-12 13:25] VITALS: BP 122/72
== END 2017-10-12 16:10 | disposition home or self-care (01) ==
LOC: ER 10:58
DX: E86.0 Dehydration (principal); F03.90 Unspecified dementia, unspecified severity, without behavioral disturbance, psychotic disturbance, mood disturbance, and anxiety; I10 Essential (primary) hypertension; E11.9 Type 2 diabetes mellitus without complications; Z95.0 Presence of cardiac pacemaker; Z88.0 Allergy status to penicillin; Z79.82 Long term (current) use of aspirin; Z79.899 Other long term (current) drug therapy
CPT/HCPCS: 36415; 80053; 81001; 85025; 96360; 99284

== ENCOUNTER 2019-01-21 23:29 | Emergency (ER) | payer MEDICARE, OTHER ==
[~2019-01-21] VITALS: Ht 188 cm; Wt 105.0 kg
[~2019-01-21 23:29] MED LIST changes: +ASPI81TA44 PO; -ASPI81TA46 PO; -DONE10TA6 PO; +DONE10TA7 PO; +HYDR-4383 PO; -HYDR-569 PO
--- NOTE | 2019-01-21 23:58 | NUR ---
PT SLEEPING COMFORTABLY ON GURCORVALLIS. NO DISTRESS NOTED.
--- NOTE | 2019-01-22 00:39 | NUR ---
PT REMAINS COMFORTABLE ON GURNEY. NO DISTRESS NOTED. HE IS SLEEPING BUT WAKES WITH GENTLE TAPPING OF THE SHOULDER. THERE IS NO SHORTENING OR ROTATION OF THE RIGHT LEG. NO OTHER OBVIOUS INJURY OR DEFORMITY. ONLY THE SLIGHT ABRASIONS TO THE RIGHT KNEE AND ABOVE THE RIGHT EYEBROW ARE PRESENT.
[2019-01-22 00:54] LABS: BASOPHILS % (AUTO) 0.7 % (0-1); EOSINOPHILS # (AUTO) 0.4 X10'3 (0-0.9); EOSINOPHILS % (AUTO) 7.2 % (0-6); HEMOGLOBIN 12.6 g/dl (14.0-17.9); LYMPHOCYTES # (AUTO) 1.1 X10'3 (1.1-4.8); LYMPHOCYTES % (AUTO) 17.7 % (21-51); MEAN CORPUSCULAR HEMOGLOBIN 33.5 PG (27.0-31.0); MEAN CORPUSCULAR HGB CONC 33.9 g/dL (33.0-36.5); MEAN CORPUSCULAR VOLUME 98.9 FL (78-98); MEAN PLATELET VOLUME 9.1 FL (7.4-10.4); MONOCYTES # (AUTO) 1.2 X10'3 (0-0.9); MONOCYTES % (AUTO) 20.1 % (2-12); NEUTROPHILS # (AUTO) 3.4 X10'3 (1.8-7.7); NEUTROPHILS % (AUTO) 54.3 % (42-75); PLATELET COUNT 198 X10'3 (140-440); RED BLOOD COUNT 3.74 X10'6 (4.70-6.10); RED CELL DISTRIBUTION WIDTH 14.3 % (11.5-14.5); WHITE BLOOD COUNT 6.2 X10'3 (4.5-11.0)
[2019-01-22 01:05] LABS: ALANINE AMINOTRANSFERASE 25 U/L (12-78); ALBUMIN 2.7 G/DL (3.4-5.0); ALBUMIN/GLOBULIN RATIO 0.7 (1.1-1.5); ALKALINE PHOSPHATASE 102 IU/L (46-116); ANION GAP 4 (8-16); ASPARTATE AMINO TRANSFERASE 17 U/L (10-37); BILIRUBIN,TOTAL 0.5 MG/DL (0.1-1.0); BLOOD UREA NITROGEN 28 MG/DL (7-18); BUN/CREATININE RATIO 28.6 (5.4-32.0); CALCIUM 8.6 MG/DL (8.5-10.1); CHLORIDE 105 MMOL/L (99-107); CREATININE 0.98 MG/DL (0.60-1.10); GLUCOSE 106 MG/DL (70-104); POTASSIUM 4.4 MMOL/L (3.5-5.1); SODIUM 138 MMOL/L (135-145); TOTAL CARBON DIOXIDE 29.3 MMOL/L (24-32); TOTAL PROTEIN 6.4 G/DL (6.4-8.2); eGFR 73 ML/MIN
[2019-01-22 01:09] LABS: TROPONIN I < 0.04 NG/ML (0.0-0.05)
[2019-01-22 01:41] LABS: PLATELET ESTIMATE NORMAL; TOTAL CELLS COUNTED 100
--- NOTE | 2019-01-22 03:29 | NUR ---
NO CHANGE IN PT CONDITION. AWAITING RESULTS OF CT SCAN AT THIS TIME.
--- NOTE | 2019-01-22 03:48 | NUR ---
pt woke up and is confused - this is his baseline per report from EMS earlier. He is trying to get out of bed. pt reoriented to place and event but he is unable to process what has occured. Pt speaks but has a stutter and his topic of speech is irrelevant to the current situation. Sitting in line of sight to make sure pt remains safe and in bed.
--- NOTE | 2019-01-22 04:12 | NUR ---
PTS BRIEF IS SOILED WITH URINE AND STOOL. HE IS CLEANED UP AND PLACED IN A NEW BRIEF. MUSIC IS PLAYED TO TRY AND CALM PATIENT HE IS SLIGHTLY AGITATED WITH THE CONFUSION AND NEW SURROUNDINGS.
[2019-01-22 04:15] VITALS: BP 70/57
--- NOTE | 2019-01-22 04:54 | NUR ---
CONTACTED FACILITY TO LET THEM KNOW THAT WE ARE UNABLE TO INDENTIFY ANY ACUTE FINDINGS RELATED TO THE PTS FALL AND THAT HE IS READY TO GO BACK TO THEIR FACILITY. THEY ARE UNCERTAIN WHICH PROVIDER THEY USE TO HAVE PTS TRANSPORTED BACK TO THE FACILITY. THEY WILL RETURN OUR CALL IN 5 MINS TO LET US KNOW HOW TO PROCEED. PT RESIDES IN THE [facility] AT THE [facility] ON [address].
--- NOTE | 2019-01-22 05:06 | NUR ---
[facility] - [facility] ARRANGED PTS TRANSPORTATION BACK VIA [facility].
--- NOTE | 2019-01-22 05:08 | NUR ---
ETA [phone] OR [phone] FOR [facility] - REQUESTED PT TO GO BY [facility] TO NON-AMBULATORY STATUS.
== END 2019-01-22 05:56 | disposition home or self-care (01) ==
LOC: ER 23:29
DX: S00.211A Abrasion of right eyelid and periocular area, initial encounter (principal); S80.211A Abrasion, right knee, initial encounter; F03.90 Unspecified dementia, unspecified severity, without behavioral disturbance, psychotic disturbance, mood disturbance, and anxiety; I10 Essential (primary) hypertension; E11.9 Type 2 diabetes mellitus without complications; F41.9 Anxiety disorder, unspecified; Z95.0 Presence of cardiac pacemaker; Z88.0 Allergy status to penicillin; Z79.82 Long term (current) use of aspirin; Z79.899 Other long term (current) drug therapy; W19.XXXA Unspecified fall, initial encounter; Y93.89 Activity, other specified; Y92.89 Other specified places as the place of occurrence of the external cause; Y99.9 Unspecified external cause status
CPT/HCPCS: 36415; 70450; 72125; 73030; 73502; 73564; 80053; 84484; 85025; 93005; 99284